=== PATIENT | male | born 1990 | race African-American/Black ===

== ENCOUNTER 2021-12-12 16:05 | Inpatient (IN) | payer OTHER ==
[~2021-12-12] VITALS: Ht 185.4 cm; Wt 117.9 kg
[2021-12-12 17:21] LABS: HEMOGLOBIN 13.9 gm/dl (14.0-17.5); RED BLOOD COUNT 5.14 M/UL (4.20-5.50); WHITE BLOOD COUNT 20.1 K/UL (4.5-11.0)
[2021-12-12 17:40] LABS: BUN/CREATININE RATIO 14 (0-10)
[2021-12-13 07:20] LABS: HEMOGLOBIN 12.4 gm/dl (14.0-17.5); RED BLOOD COUNT 4.75 M/UL (4.20-5.50)
[2021-12-13 07:26] LABS: WHITE BLOOD COUNT 12.1 K/UL (4.5-11.0)
[2021-12-13 07:49] LABS: BUN/CREATININE RATIO 14 (0-10)
[2021-12-13] MEDS ORDERED: [UNRECOGNIZED DRUG - OTHER] PO (09:57)
[2021-12-13 19:42] LABS: BORDETELLA PARAPERTUSSIS Not Detected (Not Detectd); BORDETELLA PERTUSSIS Not Detected (Not Detectd); CHLAMYDIA PNEUMONIAE Not Detected (Not Detectd); CORONAVIRUS HKU1 Not Detected (Not Detectd); CORONAVIRUS NL63 Not Detected (Not Detectd); CORONAVIRUS OC43 Not Detected (Not Detectd); CORONOAVIRUS 229E Not Detected (Not Detectd); HUMAN METAPNEUMOVIRUS Not Detected (Not Detectd); HUMAN RHINOVIRUS/ENTEROVIRUS Not Detected (Not Detectd); INFLUENZA A Not Detected (Not Detectd); INFLUENZA B Not Detected (Not Detectd); MYCOPLASMA PNEUMONIAE Not Detected (Not Detectd); PARAINFLUENZA VIRUS 1 Not Detected (Not Detectd); PARAINFLUENZA VIRUS 2 Not Detected (Not Detectd); PARAINFLUENZA VIRUS 3 Not Detected (Not Detectd); PARAINFLUENZA VIRUS 4 Not Detected (Not Detectd); RESPIRATORY SYNCYTIAL VIRUS Not Detected (Not Detectd)
[2021-12-13 21:21] LABS: SARS-CoV-2 DETECTED (Not Detectd)
[2021-12-14 05:21] LABS: HEMOGLOBIN 12.1 gm/dl (14.0-17.5); RED BLOOD COUNT 4.57 M/UL (4.20-5.50)
[2021-12-14 05:26] LABS: WHITE BLOOD COUNT 8.6 K/UL (4.5-11.0)
[2021-12-14 09:00] LABS: BUN/CREATININE RATIO 11 (0-10)
[2021-12-15 04:55] LABS: HEMOGLOBIN 12.7 gm/dl (14.0-17.5); RED BLOOD COUNT 4.82 M/UL (4.20-5.50)
[2021-12-15 05:16] LABS: BUN/CREATININE RATIO 12 (0-10)
[2021-12-15] MEDS ORDERED: BACTRIM DS TAB1 EACH PO (13:58)
[2021-12-15] MEDS ORDERED: LEVOFLOXACIN750 MG PO (13:58)
[2021-12-15] MEDS ORDERED: PHOS-NAK PACKET1 EA PO (13:58)
[2021-12-15] MEDS ORDERED: LOPRESSOR 25 MG25 MG PO (14:26)
[2021-12-15] MEDS ORDERED: HYDROCODON-ACE1 EAC4 PO (14:30)
== END 2021-12-15 15:48 | disposition home or self-care (01) | DRG 871 ==
LOC: ER1 16:05 → MED SURG 4 21:29 → CDU 21:29 → MED SURG 4 22:52
PROVIDERS: Emergency Medicine; Internal Medicine; ADMIT Internal Medicine
DX: A41.9 Sepsis, unspecified organism (principal); U07.1 COVID-19; E87.2 Acidosis; L03.115 Cellulitis of right lower limb; Z20.822 Contact with and (suspected) exposure to COVID-19; E83.39 Other disorders of phosphorus metabolism; R59.1 Generalized enlarged lymph nodes; F17.200 Nicotine dependence, unspecified, uncomplicated; Z79.899 Other long term (current) drug therapy; Z90.49 Acquired absence of other specified parts of digestive tract
CPT/HCPCS: 0240U; 36415; 71045; 80048; 80053; 80202; 81001; 82550; 82553; 83036; 83605; 83690; 83735; 83874; 84100; 85025; 85379; 85652; 86140; 87040; 87086; 87633; 93005; 93926; 93971; 96374; 96375; 96376; 99285; G0378; J1650; J1885; J2270; J2543; J3370; J7070; Q9967